=== PATIENT | female | born 1965 | race Caucasian/White ===

== ENCOUNTER → 2016-06-12 | Outpatient (REF) | payer OTHER ==
[~2016-06-12] MED LIST: FIOR1CAP PO; GABA-283 PO; PHEN1SUP6 PO; PROT1TAB2 PO
== END ==
LOC: M LAB REF 17:08
PROVIDERS: ATTEND Physician Assistant Medical
DX: Z01.419 Encounter for gynecological examination (general) (routine) without abnormal findings (principal); Z11.51 Encounter for screening for human papillomavirus (HPV)